=== PATIENT | male | born 1940 | race Caucasian/White ===

== ENCOUNTER 2016-05-08 11:26 | Emergency (ER) | payer MEDICARE, OTHER ==
[2016-05-08] MEDS ORDERED: ASPIRIN 81 MG TABLET, CHEWABLE PO ONE (11:38)
--- NOTE | 2016-05-08 11:42 | ER Document Report ---
ED Medical Screen (RME) - General Stated Complaint: WEAKNESS Mode of Arrival: Ambulatory Information source: Patient Notes: Patient presents from Dr. Cardona office for reports of AFIB. New-onset. Patient reports he went to see Dr. Pryor due to congestion. Denies shortness of breath, reports chest congestion. I have greeted and performed a rapid initial assessment of this patient. A comprehensive ED assessment and evaluation of the patient, analysis of test results and completion of the medical decision making process will be conducted by additional ED providers. TRAVEL OUTSIDE OF THE [place] IN LAST 30 DAYS: No - Related Data Allergies/Adverse Reactions: No Known Allergies Allergy (Verified 05/08/16 11:38) Past Medical History - Past Medical History Cardiac Medical History: Reports: Hx Hypercholesterolemia, Hx Hypertension Renal/ Medical History: Reports: Hx Benign Prostatic Hyperplasia GI Medical History: Reports: Hx Gastritis, Hx Ulcer Musculoskeltal Medical History: Reports Hx Arthritis Past Surgical History: Reports: Hx Abdominal Surgery - Hernia Repair, Hx Inguinal Hernia - Immunizations Hx Diphtheria, Pertussis, Tetanus Vaccination: Yes - 3 YEARS AGO Physical Exam - Vital signs Vitals: Temp Pulse Resp BP Pulse Ox 97.8 F 61 16 166/106 H 95 05/08/16 11:36 05/08/16 11:36 05/08/16 11:36 05/08/16 11:36 05/08/16 11:36 Course - Vital Signs Vital signs: Temp Pulse Resp BP Pulse Ox 97.8 F 61 16 166/106 H 95 05/08/16 11:36 05/08/16 11:36 05/08/16 11:36 05/08/16 11:36 05/08/16 11:36
[2016-05-08 16:01] LABS: ABSOLUTE EOSINOPHILS # (AUTO) 0.1 10^3/uL (0.0-0.6); ABSOLUTE LYMPHOCYTES (AUTO) 1.5 10^3/uL (0.5-4.7); ABSOLUTE MONOCYTES (AUTO) 0.4 10^3/uL (0.1-1.4); BASOPHILS % (AUTO) 0.7 % (0-2); EOSINOPHILS % (AUTO) 2.8 % (0-6); HEMATOCRIT 43.5 % (37.9-51.0); HEMOGLOBIN 14.8 g/dL (13.5-17.0); HGB HCT DIFFERENCE 0.9; LYMPHOCYTES % (AUTO) 29.3 % (13-45); MEAN CORPUSCULAR HEMOGLOBIN 30.9 pg (27.0-33.4); MEAN CORPUSCULAR VOLUME 91 fl (80-97); RED BLOOD COUNT 4.79 10^6/uL (4.35-5.55); RED CELL DISTRIBUTION WIDTH 13.2 % (11.5-14.0); SEGMENTED NEUTROPHILS % (AUTO) 59.2 % (42-78)
--- NOTE | 2016-05-08 16:06 | EKG REPORT ---
SEVERITY:- ABNORMAL ECG - ATRIAL FIBRILLATION, V-RATE 48-86 : Confirmed by: Carlitos Kaye 08-May-2016 16:05:01
[2016-05-08 16:10] LABS: PROTHROMBIN TIME 13.2 SEC (11.4-15.4)
[2016-05-08 16:15] LABS: D-DIMER 1.02 ug/mL (0.00-0.50)
[2016-05-08 16:24] LABS: ALANINE AMINOTRANSFERASE 30 U/L (21-72); ALBUMIN 4.5 g/dL (3.5-5.0); ALKALINE PHOSPHATASE 60 U/L (38-126); ANION GAP 10 (5-19); ASPARTATE AMINO TRANSFERASE 31 U/L (17-59); BILIRUBIN,DIRECT 0.1 mg/dL (0.0-0.4); BILIRUBIN,TOTAL 0.7 mg/dL (0.2-1.3); BLOOD UREA NITROGEN 18 mg/dL (7-20); CALCIUM 9.6 mg/dL (8.4-10.2); CARBON DIOXIDE 33 mmol/L (22-30); CHLORIDE 103 mmol/L (98-107); CREATINE KINASE 73 U/L (55-170); CREATININE RESULT 1.17 mg/dL (0.52-1.25); GLUCOSE 127 mg/dL (75-110); LIPASE 45.1 U/L (23-300); POTASSIUM 4.2 mmol/L (3.6-5.0); SODIUM 145.7 mmol/L (137-145); TOTAL PROTEIN 7.6 g/dL (6.3-8.2)
[2016-05-08 16:25] LABS: APPEARANCE,URINE CLEAR; BILIRUBIN,URINE NEGATIVE (NEGATIVE); GLUCOSE, URINE NEGATIVE (NEGATIVE); KETONES,URINE NEGATIVE (NEGATIVE); LEUKOCYTE ESTERASE,URINE NEGATIVE (NEGATIVE); NITRITE,URINE NEGATIVE (NEGATIVE); PROTEIN,URINE NEGATIVE (NEGATIVE); URINE SPECIFIC GRAVITY 1.017; UROBILINOGEN,URINE NEGATIVE mg/dL (<2.0)
[2016-05-08 16:35] LABS: CREATINE KINASE MB 0.64 ng/mL (<4.55); TROPONIN I < 0.012 ng/mL
[2016-05-08] MEDS ORDERED: NORMAL SALINE 1000 ML 1,000 ML IV ONE (16:44)
[2016-05-08 17:13] LABS: URINE BARBITURATES SCREEN NEGATIVE; URINE METHADONE SCREEN NEGATIVE; URINE OPIATES LOW NEGATIVE; URINE PHENCYCLIDINE SCREEN NEGATIVE
--- NOTE | 2016-05-08 18:10 | ER Document Report ---
ED General - General Chief Complaint: High Blood Pressure Stated Complaint: WEAKNESS Mode of Arrival: Ambulatory TRAVEL OUTSIDE OF THE [place] IN LAST 30 DAYS: No - HPI Patient complains to provider of: new onset A. fib Notes: Patient coming in for evaluation of new onset A. fib. Patient states saw his urologist proximal a 2 weeks ago had increasing his doxazosin from 2 mg 5 mg for his BPH and since that time has been having some intermittent pain is chest and feeling that his heart is palpitating went to his physician who did an EKG showed A. fib. Was told to come to the ER. Patient otherwise denies any other symptoms except for noticing his blood pressure has been elevating since increasing his dose of doxazosin. Patient denies chest pain shortness of breath recent travel antibiotics changes medications as of weatherwise stated. States history of hyperlipidemia denies any caffeine use stimulants drug use smoking - Related Data Allergies/Adverse Reactions: No Known Allergies Allergy (Verified 05/08/16 11:38) Past Medical History - General Information source: Patient - Social History Smoking Status: Never Smoker Chew tobacco use (# tins/day): No Family History: Reviewed & Not Pertinent Patient has suicidal ideation: No Patient has homicidal ideation: No - Past Medical History Cardiac Medical History: Reports: Hx Hypercholesterolemia, Hx Hypertension Renal/ Medical History: Reports: Hx Benign Prostatic Hyperplasia. Denies: Hx Peritoneal Dialysis GI Medical History: Reports: Hx Gastritis, Hx Ulcer Musculoskeltal Medical History: Reports Hx Arthritis - right shoulder Past Surgical History: Reports: Hx Abdominal Surgery - Hernia Repair, Hx Inguinal Hernia - Immunizations Hx Diphtheria, Pertussis, Tetanus Vaccination: Yes - 3 YEARS AGO Review of Systems - Review of Systems Constitutional: No symptoms reported EENT: No symptoms reported Cardiovascular: Other - A. fib Respiratory: No symptoms reported Gastrointestinal: No symptoms reported Genitourinary: No symptoms reported Male Genitourinary: No symptoms reported Musculoskeletal: No symptoms reported Skin: No symptoms reported Hematologic/Lymphatic: No symptoms reported Neurological/Psychological: No symptoms reported Physical Exam - Vital signs Vitals: Temp Pulse Resp BP Pulse Ox 97.8 F 61 16 166/106 H 95 05/08/16 11:36 05/08/16 11:36 05/08/16 11:36 05/08/16 11:36 05/08/16 11:36 Interpretation: Normal - General General appearance: Appears well, Alert - HEENT Head: Normocephalic, Atraumatic Eyes: Normal Pupils: PERRL - Respiratory Respiratory status: No respiratory distress Chest status: Nontender Breath sounds: Normal Chest palpation: Normal - Cardiovascular Rhythm: Irregularly irregular Heart sounds: Normal auscultation Murmur: No - Abdominal Inspection: Normal Distension: No distension Bowel sounds: Normal Tenderness: Nontender Organomegaly: No organomegaly - Back Back: Normal, Nontender - Extremities General upper extremity: Normal inspection, Nontender, Normal color, Normal ROM , Normal temperature General lower extremity: Normal inspection, Nontender, Normal color, Normal ROM , Normal temperature, Normal weight bearing. No: Kaycee's sign - Neurological Neuro grossly intact: Yes Cognition: Normal Orientation: AAOx4 [place] Coma Scale Eye Opening: Spontaneous Rosie Coma Scale Verbal: Oriented Rosie Coma Scale Motor: Obeys Commands [place] Coma Scale Total: 15 Speech: Normal Motor strength normal: LUE, RUE, LLE, RLE Sensory: Normal - Psychological Associated symptoms: Normal affect, Normal mood - Skin Skin Temperature: Warm Skin Moisture: Dry Skin Color: Normal Course - Re-evaluation Re-evalutation: 05/08/16 18:26 Patient coming in for evaluation of new-onset atrial fibrillation patient's lab work shows no critical etiology. I did discussed the patient's case with cardiology on-call recommended this time patient can to be anticoagulated with possible early of aspirin patient was given aspirin a day patient was encouraged follow-up with Dr. MARTINEZ tomorrow cell phone number and office information was given to the patient patient discharged - Vital Signs Vital signs: Temp Pulse Resp BP Pulse Ox 97.8 F 61 20 132/96 H 97 05/08/16 11:36 05/08/16 11:36 05/08/16 18:02 05/08/16 18:02 05/08/16 18:02 - Laboratory Result Diagrams: 05/08/16 15:49 05/08/16 15:49 Laboratory results interpreted by me: 05/08/16 05/08/16 05/08/16 15:49 15:49 15:49 D-Dimer 1.02 H Sodium 145.7 H Carbon Dioxide 33 H Glucose 127 H NT-Pro-B Natriuret Pep 1920 H Discharge - Discharge Clinical Impression: New onset a-fib Condition: Good Disposition: HOME, SELF-CARE Instructions: Atrial Fibrillation (OM) Additional Instructions: Your laboratory studies today showed no critical reason for your new onset of atrial fibrillation. I did discuss her case with our him clerk on-call Dr. MARTINEZ. He recommends at this time but he can be discharged home follow-up in his office tomorrow. Please call Dr. Martinez office or he may call his cell phone [phone] tomorrow Return to ER if any symptoms worsen Referrals: OLEG ROMERO MD [Primary Care Provider] - Follow up as needed PETTY BERNABE MD [ACTIVE STAFF] - Follow up tomorrow
[2016-05-08 18:14] LABS: THYROID STIMULATING HORMONE 1.91 uIU/mL (0.47-4.68)
[2016-05-08 18:20] VITALS: BP 168/96
== END 2016-05-08 18:22 | disposition home or self-care (01) ==
LOC: ER 11:26
DX: I48.91 Unspecified atrial fibrillation (principal); I10 Essential (primary) hypertension; R07.9 Chest pain, unspecified; N40.0 Benign prostatic hyperplasia without lower urinary tract symptoms; Z79.899 Other long term (current) drug therapy
CPT/HCPCS: 93005; 99284; 96360; 36415; 84439; 82553; 82550; 83690; 83735; 84443; 85025; 85610; 85730; 80053; 81001; 84484; 80307; 85379; 83880; 71020; 71275; 93010; A9270; J7030

== ENCOUNTER → 2016-05-18 | Outpatient (CLI) | payer MEDICARE, OTHER ==
--- NOTE | 2016-05-18 19:17 | XCELERA REPORT ---
[address] [address] Transthoracic Echocardiogram Report Name: OLI AZUL Age: 76 yrs Gender: Male : 1940 Patient Status: Outpatient Patient Location: Study Date: 05/18/2016 09:15 AM Height: 66 in Weight: 173 lb BSA: 1.9 m2 Procedure: A complete two-dimensional transthoracic echocardiogram was performed (2D, M-mode, spectral and color flow Doppler). The study was technically adequate with some images being suboptimal in quality. Reason For Study: CP R07.9 Ordering Physician: PETTY BERNABE Performed By: Ty Britt Interpretation Summary The left ventricular ejection fraction is normal. There is mild concentric left ventricular hypertrophy. The left ventricle is grossly normal size. LV diastolic function could not be adequately assessed due to atrial fibrilation. Wall motion cannot be accurately commented on, but no definite regional wall motion abnormalities noted. The right ventricle is mildly dilated. The right ventricular systolic function is normal. The right atrium is mildly dilated. Borderline left atrial enlargement. There is no mitral valve stenosis. There is a mild to moderate amount of mitral regurgitation There is no aortic valve stenosis No aortic regurgitation is present. There is a trace to mild amount of tricuspid regurgitation There is mild pulmonary hypertension by echo Right ventricular systolic pressure is estimated to be elevated at 30- 40mmHg. The aortic root is not well visualized. The inferior vena cava appeared normal and decreased > 50% with respiration (RAP 5-10 mmHg) There is no pericardial effusion. MMode/2D Measurements \T\ Calculations RVDd: 2.0 cm LVIDd: 5.0 cm FS: 27.5 % Ao root diam: 3.1 cm IVSd: 1.2 cm LVIDs: 3.6 cm EDV(Teich): 119.8 ml LVPWd: 1.1 cm ESV(Teich): 56.1 ml Ao root area: 7.7 cm2 EF(Teich): 53.2 % LA dimension: 3.6 cm Doppler Measurements \T\ Calculations MV E max dinora: MV P1/2t max dinora: Ao V2 max: LV V1 max P.2 cm/sec 79.5 cm/sec 87.4 cm/sec 1.6 mmHg MV P1/2t: 45.8 msec Ao max PG: LV V1 max: 3.1 mmHg 62.4 cm/sec MVA(P1/2t): 4.8 cm2 MV dec slope: 508.9 cm/sec2 PA V2 max: PI end-d dinora: TR max dionra: RAP systole: 53.8 cm/sec 126.7 cm/sec 214.5 cm/sec 10.0 mmHg PA max PG: TR max P.2 mmHg 18.4 mmHg RVSP(TR): 28.4 mmHg Left Ventricle The left ventricle is grossly normal size. There is mild concentric left ventricular hypertrophy. The left ventricular ejection fraction is normal. LV diastolic function could not be adequately assessed due to atrial fibrilation. Wall motion cannot be accurately commented on, but no definite regional wall motion abnormalities noted. Right Ventricle The right ventricle is mildly dilated. There is normal right ventricular wall thickness. The right ventricular systolic function is normal. Atria The right atrium is mildly dilated. Borderline left atrial enlargement. Interarterial septum not well visualized and not well dopplered. Cannot comment on ASD/PFO presence. Mitral Valve The mitral valve leaflets are sclerotic, but show no functional abnormalities. There is no mitral valve stenosis. There is a mild to moderate amount of mitral regurgitation. Aortic Valve The aortic valve is grossly normal. There is no aortic valve stenosis. No aortic regurgitation is present. Tricuspid Valve The tricuspid valve is not well visualized, but is grossly normal. There is no tricuspid stenosis. There is a trace to mild amount of tricuspid regurgitation. There is mild pulmonary hypertension by echo. Right ventricular systolic pressure is estimated to be elevated at 30-40mmHg. Pulmonic Valve The pulmonic valve is not well visualized. Great Vessels The aortic root is not well visualized. The inferior vena cava appeared normal and decreased > 50% with respiration (RAP 5-10 mmHg). Effusions There is no pericardial effusion. : PETTY BERNABE > Carlitos Kaye
== END ==
LOC: SP 08:55
PROVIDERS: ATTEND Specialist
DX: R07.9 Chest pain, unspecified (principal)
CPT/HCPCS: 93306

== ENCOUNTER → 2016-07-14 | Outpatient (CLI) | payer MEDICARE, OTHER ==
[2016-07-14 10:15] LABS: ABSOLUTE BASOPHILS # (AUTO) 0.1 10^3/uL (0.0-0.2); ABSOLUTE EOSINOPHILS # (AUTO) 0.2 10^3/uL (0.0-0.6); ABSOLUTE LYMPHOCYTES (AUTO) 1.4 10^3/uL (0.5-4.7); ABSOLUTE MONOCYTES (AUTO) 0.3 10^3/uL (0.1-1.4); ABSOLUTE NEUT (AUTO) 3.2 10^3/uL (1.7-8.2); BASOPHILS % (AUTO) 1.1 % (0-2); EOSINOPHILS % (AUTO) 3.3 % (0-6); HEMATOCRIT 41.8 % (37.9-51.0); HEMOGLOBIN 14.2 g/dL (13.5-17.0); HGB HCT DIFFERENCE 0.8; LYMPHOCYTES % (AUTO) 26.7 % (13-45); MEAN CORPUSCULAR HEMOGLOBIN 31.5 pg (27.0-33.4); MEAN CORPUSCULAR HGB CONC 33.9 g/dL (32.0-36.0); MEAN CORPUSCULAR VOLUME 93 fl (80-97); MONOCYTES % (AUTO) 6.2 % (3-13); RED BLOOD COUNT 4.49 10^6/uL (4.35-5.55); RED CELL DISTRIBUTION WIDTH 13.3 % (11.5-14.0); SEGMENTED NEUTROPHILS % (AUTO) 62.7 % (42-78); WHITE BLOOD COUNT 5.2 10^3/uL (4.0-10.5)
== END ==
LOC: OD 08:52
PROVIDERS: ATTEND Specialist
DX: I48.1 Persistent atrial fibrillation (principal); R94.31 Abnormal electrocardiogram [ECG] [EKG]; I10 Essential (primary) hypertension; E78.5 Hyperlipidemia, unspecified; R00.2 Palpitations; R07.2 Precordial pain; Z79.899 Other long term (current) drug therapy
CPT/HCPCS: 36415; 85025

== ENCOUNTER → 2016-11-09 | Outpatient (CLI) | payer MEDICARE, OTHER ==
--- NOTE | 2016-11-09 14:22 | RADIOLOGY REPORT (SQ) ---
EXAM DESCRIPTION: CHEST PA/LATERAL COMPLETED DATE/TIME: 11/09/2016 2:10 pm REASON FOR STUDY: BRONCHITIS, NOT SPECIFIED ACUTE OR CHRONIC COMPARISON: 05/08/2016. EXAM PARAMETERS: NUMBER OF VIEWS: two views TECHNIQUE: Digital Frontal and Lateral radiographic views of the chest acquired. RADIATION DOSE: NA LIMITATIONS: none FINDINGS: LUNGS AND PLEURA: No opacities, masses or pneumothorax. No pleural effusion. MEDIASTINUM AND HILAR STRUCTURES: No masses or contour abnormalities. HEART AND VASCULAR STRUCTURES: Heart normal size. No evidence for failure. BONES: No acute findings. HARDWARE: None in the chest. OTHER: No other significant finding. IMPRESSION: NO SIGNIFICANT RADIOGRAPHIC FINDING IN THE CHEST. TECHNICAL DOCUMENTATION: JOB ID: [id number] [employer]- All Rights Reserved
[2016-11-09 15:28] LABS: ABSOLUTE BASOPHILS # (AUTO) 0.1 10^3/uL (0.0-0.2); ABSOLUTE LYMPHOCYTES (AUTO) 1.2 10^3/uL (0.5-4.7); ABSOLUTE MONOCYTES (AUTO) 0.8 10^3/uL (0.1-1.4); ABSOLUTE NEUT (AUTO) 3.9 10^3/uL (1.7-8.2); EOSINOPHILS % (AUTO) 0.3 % (0-6); HEMATOCRIT 37.3 % (37.9-51.0); HEMOGLOBIN 13.2 g/dL (13.5-17.0); HGB HCT DIFFERENCE 2.3; LYMPHOCYTES % (AUTO) 20.5 % (13-45); MEAN CORPUSCULAR HEMOGLOBIN 32.1 pg (27.0-33.4); MEAN CORPUSCULAR HGB CONC 35.3 g/dL (32.0-36.0); MEAN CORPUSCULAR VOLUME 91 fl (80-97); MONOCYTES % (AUTO) 13.4 % (3-13); RED CELL DISTRIBUTION WIDTH 12.9 % (11.5-14.0); SEGMENTED NEUTROPHILS % (AUTO) 64.8 % (42-78); WHITE BLOOD COUNT 6.1 10^3/uL (4.0-10.5)
== END ==
LOC: OD 13:46
PROVIDERS: ATTEND Obstetrics & Gynecology
DX: J06.9 Acute upper respiratory infection, unspecified (principal)
CPT/HCPCS: 36415; 71020; 85025

== ENCOUNTER 2018-10-11 10:03 | Observation (INO) | payer MEDICARE, OTHER ==
--- NOTE | 2018-10-11 10:52 | ER Document Report ---
ED General - General Chief Complaint: Probable Seizure Stated Complaint: POSSIBLE SEIZURE Time Seen by Provider: 10/11/18 10:51 Primary Care Provider: OLEG ROMERO MD [Primary Care Provider] - Follow up as needed Notes: HPI: 78-year-old male with past medical history as recorded who presents after a witnessed tonic-clonic seizure x2 by his . 3 minutes and 5 minutes respectively. Patient did not fall. Patient was lying on a couch during the episode. No recent head traumas. Fevers, or vomiting. 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 Supposedly there was no metastatic disease. No recent medication changes. Patient used to be on gabapentin but has not taken this medication for greater than 1 year. Patient possibly had his had a seizure a few times in the past. These were never witnessed. Patient states he has woken up confused on 2 different locations. It was presumed that the patient may have had a seizure at that time. Patient is currently at baseline mental status. He is oriented x4. He denies any and all headache, neck pain, chest pain, abdominal pain, weakness or numbness. He does not remember the events. ROS: See HPI All other review of systems reviewed and otherwise negative Reviewed vital signs and nursing note as charted by RN. PHYSICAL EXAM: CONSTITUTIONAL: Alert and oriented and responds appropriately to questions. Well-appearing; well-nourished HEAD: Normocephalic; atraumatic EYES: PERRL; full extraocular range of motion ENT: Normal nose; no rhinorrhea; patient has some right periorbital bruising with a suture line below the right eye consistent with prior surgery moist mucous membranes; pharynx without lesions noted NECK: Supple without meningismus; non-tender; no cervical lymphadenopathy, no masses CARD: Regular rate and rhythm; no murmurs; symmetric distal pulses RESP: Normal chest excursion without splinting or tachypnea; breath sounds clear and equal bilaterally; no wheezes, no rhonchi, no rales ABD/GI: Normal bowel sounds; non-distended; soft, non-tender; no palpable organomegaly or masses BACK: The back appears normal and is non-tender to palpation EXT: Normal ROM in all joints; non-tender to palpation; no edema SKIN: No acute lesions noted NEURO: CN 2-12 intact; 5/5 bilateral upper and lower extremity strength with sensation intact to light touch PSYCH: The patient's mood and manner are appropriate. Grooming and personal hygiene are appropriate. TRAVEL OUTSIDE OF THE [place] IN LAST 30 DAYS: No - Related Data Allergies/Adverse Reactions: No Known Allergies Allergy (Verified 10/11/18 10:40) Past Medical History - Social History Smoking Status: Unknown if Ever Smoked Family History: Reviewed & Not Pertinent - Past Medical History Cardiac Medical History: Reports: Hx Hypercholesterolemia, Hx Hypertension Renal/ Medical History: Reports: Hx Benign Prostatic Hyperplasia. Denies: Hx Peritoneal Dialysis GI Medical History: Reports: Hx Gastritis, Hx Ulcer Musculoskeletal Medical History: Reports Hx Arthritis - right shoulder Past Surgical History: Reports: Hx Abdominal Surgery - Hernia Repair, Hx Inguinal Hernia - Immunizations Hx Diphtheria, Pertussis, Tetanus Vaccination: Yes - 3 YEARS AGO Physical Exam - Vital signs Vitals: Resp BP Pulse Ox 21 H 115/78 88 L 10/11/18 10:33 10/11/18 10:33 10/11/18 10:33 Course - Re-evaluation Re-evalutation: Given the history and physical examination we will order basic labs, electrolytes, CT scan of the head, and reassess. I will provide a dose of Keppra given the patient's back to back seizures. Possible history of seizures. Patient currently is afebrile denies any and all pain. I do believe acute bacterial meningitis or traumatic brain injury to be unlikely. There is no interaction with Tikosyn, Eliquis, or Keppra. 10/11/18 10:52 EKG shows a heart rate of 114, atrial fibrillation with rapid ventricular response, normal axis, no ST elevation or depression. Old EKG shows atrial fibrillation with a heart rate in the 60s. 10/11/18 12:41 CT scan as recorded. Still no pain no focal neurological deficits. Keppra has been provided. Patient will be admitted for further assessment and medication management. - Vital Signs Vital signs: Temp Pulse Resp BP Pulse Ox 97.9 F 16 135/97 H 96 10/11/18 11:56 10/11/18 12:31 10/11/18 12:31 10/11/18 12:31 - Laboratory Result Diagrams: 10/11/18 10:55 10/11/18 10:55 Laboratory results interpreted by me: 10/11/18 10/11/18 10/11/18 10:55 10:55 11:08 RBC 4.24 L Hgb 13.3 L Glucose 115 H POC Glucose 113 H Magnesium 2.4 H Urine Protein Urine Blood 10/11/18 11:50 RBC Hgb Glucose POC Glucose Magnesium Urine Protein 30 H Urine Blood SMALL H Discharge - Discharge Clinical Impression: Seizure Condition: Fair Disposition: ADMITTED OBSERVATION Admitting Provider: Efrain (Hospitalist) Unit Admitted: Telemetry Referrals: OLEG ROMERO MD [Primary Care Provider] - Follow up as needed
[2018-10-11 11:13] LABS: ABSOLUTE EOSINOPHILS # (AUTO) 0.2 10^3/uL (0.0-0.6); ABSOLUTE LYMPHOCYTES (AUTO) 1.1 10^3/uL (0.5-4.7); ABSOLUTE MONOCYTES (AUTO) 0.3 10^3/uL (0.1-1.4); ABSOLUTE NEUT (AUTO) 2.7 10^3/uL (1.7-8.2); BASOPHILS % (AUTO) 0.7 % (0-2); EOSINOPHILS % (AUTO) 3.9 % (0-6); HEMATOCRIT 38.9 % (37.9-51.0); HEMOGLOBIN 13.3 g/dL (13.5-17.0); LYMPHOCYTES % (AUTO) 25.1 % (13-45); MEAN CORPUSCULAR HEMOGLOBIN 31.3 pg (27.0-33.4); MEAN CORPUSCULAR HGB CONC 34.1 g/dL (32.0-36.0); MEAN CORPUSCULAR VOLUME 92 fl (80-97); MONOCYTES % (AUTO) 7.4 % (3-13); PLATELET COUNT 154 10^3/uL (150-450); RED BLOOD COUNT 4.24 10^6/uL (4.35-5.55); RED CELL DISTRIBUTION WIDTH 13.1 % (11.5-14.0); SEGMENTED NEUTROPHILS % (AUTO) 62.9 % (42-78); TOTAL CELLS COUNTED % (AUTO) 100 %; WHITE BLOOD COUNT 4.3 10^3/uL (4.0-10.5)
--- NOTE | 2018-10-11 11:34 | RADIOLOGY REPORT (SQ) ---
EXAM DESCRIPTION: CT HEAD WITHOUT COMPLETED DATE/TIME: 10/11/2018 11:20 am REASON FOR STUDY: 2; seizure new onset COMPARISON: 07/23/2012 TECHNIQUE: Axial images acquired through the brain without intravenous contrast. Images reviewed wi th bone, brain and subdural windows. Additional sagittal and coronal reconstructions were generated. Images stored on PACS. All CT scanners at this facility use dose modulation, iterative reconstruction, and/or weight based d osing when appropriate to reduce radiation dose to as low as reasonably achievable (ALARA). [facility]: Dose Right [facility]: CareDose [facility]: Dose Right [facility]: Teradose 4D [facility]: Smart DealCurious RADIATION DOSE: CT Rad equipment meets quality standard of care and radiation dose reduction techniq ues were employed. CTDIvol: 53.2 mGy. DLP: 1044 mGy-cm. mGy. LIMITATIONS: None. FINDINGS: VENTRICLES: Normal size and contour. CEREBRUM: No masses. No hemorrhage. No midline shift. No evidence for acute infarction. Normal gra y/white matter differentiation. No areas of low density in the white matter. CEREBELLUM: No masses. No hemorrhage. No alteration of density. No evidence for acute infarction. EXTRAAXIAL SPACES: No fluid collections. No masses. ORBITS AND GLOBE: No intra- or extraconal masses. Normal contour of globe without masses. CALVARIUM: No fracture. PARANASAL SINUSES: No fluid or mucosal thickening. SOFT TISSUES: No mass or hematoma. OTHER: No other significant finding. IMPRESSION: No acute intracranial pathology. EVIDENCE OF ACUTE STROKE: NO. COMMENT: Quality ID # [id number]: Final reports with documentation of one or more dose reduction techniques (e.g., Automated exposure control, adjustment of the mA and/or kV according to patient size, use of iterative reconstruction technique) TECHNICAL DOCUMENTATION: JOB ID: [id number] [employer]- All Rights Reserved Reading location - IP/workstation name: [email or web address]
[2018-10-11 11:36] LABS: ALBUMIN 4.1 g/dL (3.5-5.0); ALKALINE PHOSPHATASE 55 U/L (38-126); ANION GAP 8 (5-19); ASPARTATE AMINO TRANSFERASE 34 U/L (17-59); BILIRUBIN,DIRECT 0.2 mg/dL (0.0-0.4); BILIRUBIN,TOTAL 0.5 mg/dL (0.2-1.3); BLOOD UREA NITROGEN 16 mg/dL (7-20); CARBON DIOXIDE 28 mmol/L (22-30); CHLORIDE 104 mmol/L (98-107); GLUCOSE 115 mg/dL (75-110); POTASSIUM 4.4 mmol/L (3.6-5.0); TOTAL PROTEIN 6.7 g/dL (6.3-8.2)
[2018-10-11 11:37] LABS: ALCOHOL < 10 mg/dL (NONE DETECTED)
[2018-10-11] MEDS ORDERED: LEVETIRACETAM 1000 MG/NACL-ISO 1,000 MG/100 ML RTUPB IV ONE (11:53)
[2018-10-11 12:05] LABS: APPEARANCE,URINE CLEAR; BILIRUBIN,URINE NEGATIVE (NEGATIVE); COLOR,URINE YELLOW; GLUCOSE, URINE NEGATIVE (NEGATIVE); KETONES,URINE NEGATIVE (NEGATIVE); LEUKOCYTE ESTERASE,URINE NEGATIVE (NEGATIVE); NITRITE,URINE NEGATIVE (NEGATIVE); PROTEIN,URINE 30 mg/dL (NEGATIVE); URINE SPECIFIC GRAVITY 1.013; UROBILINOGEN,URINE NEGATIVE mg/dL (<2.0)
[2018-10-11 12:23] LABS: URINE AMPHETAMINES SCREEN NEGATIVE; URINE BARBITURATES SCREEN NEGATIVE; URINE BENZODIAZEPINES SCREEN NEGATIVE; URINE COCAINE SCREEN NEGATIVE; URINE MARIJUANA (THC) SCREEN NEGATIVE; URINE METHADONE SCREEN NEGATIVE; URINE PHENCYCLIDINE SCREEN NEGATIVE
--- NOTE | 2018-10-11 13:56 | EKG REPORT ---
SEVERITY:- ABNORMAL ECG - ATRIAL FIBRILLATION BORDERLINE PROLONGED QT INTERVAL : Confirmed by: Angel Martinez MD 11-Oct-2018 13:55:57
[2018-10-11] MEDS ORDERED: LORAZEPAM INJ 2 MG/1 ML VIAL IV ONE ×2 (14:15→20:00)
[2018-10-11 17:06] LABS: FREE T4 (FREE THYROXINE) 1.02 ng/dL (0.78-2.19)
[2018-10-11 17:20] LABS: THYROID STIMULATING HORMONE 4.14 uIU/mL (0.47-4.68)
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
--- NOTE | 2018-10-11 18:30 | NEURO WORKBENCH EEG REPORT ---
EEG Report Patient: Bandar Snyder ID: [id number] Referring Doctor: Homar Zuniga Date: 10/11/2018 Reason for study: Evaluate Epileptiform activity Medications: Keppra History: This is a 78 year old male with a history of HTN, Hypercholesterolemia, and skin cancer who was admitted with new onset seizure. This EEG was requested for evaluation of epileptiform activity. EEG Interpretation: This EEG was recorded during wakefulness, stage I, and stage II sleep. The awake EEG is characterized by a well organized background with a well developed and reactive posterior dominant rhythm (PDR) of approximately 9-10 Hz. The remainder of the background consisted of low amplitude frontally predominant beta activity. There was overall rare left temporal theta activity. Photic stimulation resulted in minimal photic driving, and there was no epileptiform activity elicited with photic stimulation. Stage I sleep was achieved and characterized by slow rolling eye movements, slowing of the background rhythm by 1-2 Hz. Stage II sleep was achieved with more prominent theta and delta acitivyt, and symmetric K-complexes and sleep spindles were noted. There were no definitive epileptiform abnormalities (no sharp waves and no spikes). There were no seizures. There were rare poorly formed sharply contoured waveforms in the left temporal region not definitively epileptiform in etiology. The EKG showed an irregular rhythm with rare ectopic beats and typically 60-70 beats per minute. EEG Impression: This EEG is abnormal due to rare left temporal theta activity suggestive of left temporal cerebral dysfunction. In addition, there were rare poorly formed sharply contoured waveforms in the left temporal region that were not definitively epileptiform in etiology. However, it should be noted that the patient is taking Keppra which could suppress interictal epileptiform activity. Consideration should be given to cerebral imaging with MRI to evaluate the left temporal region for structural abnormalities. If there is high clinical suspicion for epilepsy, then additional EEG evaluation should be considered more prolonged EEG monitoring. Cardiology evaluation should be considered given the irregular rhythm and ectopic beats noted on single channel EKG. INTERPRETING NEUROLOGIST: Isma Judge MD Board certified by the [employer] [employer] in Neurology, Clinical Neurophysiology, and Sleep Medicine [facility]
[2018-10-11] MEDS: APIXABAN 5 MG TABLET PO SCH (21:14)
[2018-10-11] MEDS: DOFETILIDE 500 MCG CAPSULE PO SCH (21:15)
[2018-10-11] MEDS: LEVETIRACETAM 500 MG TABLET PO SCH (21:20)
[2018-10-11] MEDS ORDERED: LOSARTAN POTASSIUM 50 MG TABLET PO SCH (22:00)
[2018-10-11] MEDS ORDERED: ATORVASTATIN CALCIUM 20 MG TABLET PO SCH (22:00)
--- NOTE | 2018-10-11 22:16 | RADIOLOGY REPORT (SQ) ---
MR BRAIN WITHOUT THEN WITH IV CONTRAST EXAM DATE: 10/11/2018 12:00 AM CDT HISTORY: New-onset seizure, hx melanoma. COMPARISON: None. TECHNIQUE: Multisequence, multiplanar MR imaging of the brain was performed without the administration of intravenous gadolinium. FINDINGS: Scattered areas of T2/FLAIR hyperintense foci are seen in the supratentorial white matter, likely representing chronic microvascular ischemia. There is no acute infarction, intracranial hemorrhage, extra-axial fluid collection, or mass. The brainstem, posterior fossa, and cervicomedullary junction are preserved. The intravascular flow voids are preserved. The orbits are unremarkable. No abnormality of the skull base or calvarium is seen. Mild mucosal thickening of bilateral posterior ethmoid air cells. The mastoid air cells are clear. IMPRESSION: 1. No acute intracranial findings. 2. Senescent changes with chronic microvascular ischemia.
[2018-10-12 03:38] VITALS: BP 131/82
[2018-10-12] MEDS: LEVETIRACETAM 500 MG TABLET PO SCH (09:26)
[2018-10-12] MEDS: APIXABAN 5 MG TABLET PO SCH (09:28)
[2018-10-12] MEDS: DOFETILIDE 500 MCG CAPSULE PO SCH (09:28)
[2018-10-12] MEDS ORDERED: LOSARTAN POTASSIUM 25 MG TABLET PO SCH (10:00)
[2018-10-12] MEDS ORDERED: DOXAZOSIN MESYLATE 4 MG TABLET PO SCH (10:00)
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
== END 2018-10-12 11:35 | disposition home or self-care (01) ==
LOC: ER 10:03 → EH 13:08 → OBSVTOIN 13:52 → INTOOBSV 13:52 → 5 14:44
PROVIDERS: ADMIT Family Medicine; ATTEND Family Medicine
DX: R56.9 Unspecified convulsions (principal); I48.2 Chronic atrial fibrillation; E78.5 Hyperlipidemia, unspecified; I10 Essential (primary) hypertension; E66.9 Obesity, unspecified; R94.01 Abnormal electroencephalogram [EEG]; Z85.820 Personal history of malignant melanoma of skin; Z87.828 Personal history of other (healed) physical injury and trauma; Z91.82 Personal history of military deployment; Z79.899 Other long term (current) drug therapy; Z79.01 Long term (current) use of anticoagulants; Z87.891 Personal history of nicotine dependence; Z98.890 Other specified postprocedural states
CPT/HCPCS: 95819 ×2; 93005; 99285; 96374; 36415; 84439; 82962; 80307 ×2; 83735; 84443; 85025; 80053; 81001; 70553; 70450; 93010; G0378 ×2; A9576; J2060; A9270 ×2; J1953